=== PATIENT | female | born 1985 | race Caucasian/White ===

== ENCOUNTER 2017-06-29 08:22 | Emergency (ER) | payer SELFPAY ==
[2017-06-29] MEDS ORDERED: ONDANSETRON 4 MG/2 ML VIAL IVP ONE (08:51)
[2017-06-29] MEDS ORDERED: NS 1,000 ML IV ONE (08:51)
[2017-06-29] MEDS ORDERED: fentaNYL 100 MCG/2 ML INJ IVP ONE (08:51)
--- NOTE | 2017-06-29 08:54 | EDPHY ---
H & P Time Seen by Provider: 06/29/17 08:42 HPI/ROS: CHIEF COMPLAINT: Sudden onset lower abdominal pain HISTORY OF PRESENT ILLNESS: Patient is a [id number] and has not started menstruating since she gave . She doing well was breast feeding at 4:30 a.m. This morning and felt fine. She was awakened at 6:30 a.m. With severe lower abdominal sharp pain which starts in middle and radiates to the left. It is better now and improved when it started but still is moderate to severe. Not associated with urinary symptoms or vomiting or diarrhea or recent injury or trauma. No vaginal bleeding or discharge. REVIEW OF SYSTEMS: Eye: no change in vision ENT: no sore throat Cardiac: no chest pain or syncope Pulmonary: no cough or SOB Abdomen: HPI Musculoskeletal: no back pain Skin: no rash Neuro: no headache Constitutional: no fever : no urinary symptoms A comprehensive 10 point review of systems is otherwise negative aside from elements mentioned in the history of present illness. PAST MEDICAL HISTORY: 2 para 0 Social history: Here with and brother General Appearance: Alert and conversant, cooperative. Eyes: No scleral icterus. ENT, Mouth: Normal mucous membranes. Respiratory: Normal respiratory effort, breath sounds equal, lungs are clear to auscultation. Cardiovascular: Regular rate and rhythm. Gastrointestinal: Left lower quadrant abdominal tenderness and suprapubic tenderness but no rebound or guarding. Neurological: Alert, face symmetric, normal motor and sensory in extremities. Skin: Warm and dry, no rashes. Musculoskeletal: No peripheral edema. Psychiatric: Not agitated. Emergency Department course/MDM: Fentanyl 50 mcg IV and Zofran 4 mg IV. Ultrasound of pelvis. CBC and test, urinalysis. Clinical impression would be more likely to be ovarian then appendix. 1105: Negative ultrasound, can't see appendix. Ion. 1129: Re-evaluated, labs and ultrasound discussed. Toradol 15 mg IV, discharge if UA is negative. 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 However I do not think she has PID or ectopic her ovarian torsion or any other acute surgical emergent process. Urine dip negative for blood or infection, reasonable to discharge with precautions. I think appendicitis would be unlikely but is not completely excluded at this time, patient warned. Smoking Status: Never smoked Constitutional: Initial Vital Signs Temperature (C) 36.6 C 06/29/17 08:37 Heart Rate 73 06/29/17 08:37 Respiratory Rate 17 06/29/17 08:37 Blood Pressure 114/69 06/29/17 08:37 O2 Sat (%) 94 06/29/17 08:37 O2 Delivery Mode Room Air Allergies/Adverse Reactions: No Known Allergies Allergy (Unverified 06/29/17 08:37) Home Medications: Medication Instructions Recorded NK [No Known Home Meds] 06/29/17 Medical Decision Making - Diagnostics Imaging Results: Imaging Impressions Abdomen Ultrasound 06/29/17 08:52 Impression: 1. Nonvisualization of the appendix. Results called to Dr. Fenton at 11:00 AM Pelvic/Renal Ultrasound 06/29/17 08:52 Impression: Normal ultrasound pelvis. Results called to Dr. Sumanth Fenton at 11:00 AM Differential Diagnosis: Differential considered including but not limited to appendicitis, ectopic, ovarian torsion, PID, ovarian cyst, UTI - Data Points Laboratory Results: Laboratory Results 06/29/17 09:15 06/29/17 09:15 06/29/17 06/29/17 06/29/17 09:15 09:15 09:15 WBC 5.08 10^3/uL 10^3/uL (3.80-9.50) RBC 4.45 10^6/uL 10^6/uL (4.18-5.33) Hgb 13.3 g/dL g/dL (12.6-16.3) Hct 39.9 % % (38.0-47.0) MCV 89.7 fL fL (81.5-99.8) MCH 29.9 pg pg (27.9-34.1) MCHC 33.3 g/dL g/dL (32.4-36.7) RDW 12.3 % % (11.5-15.2) Plt Count 229 10^3/uL 10^3/uL (150-400) MPV 9.7 fL fL (8.7-11.7) Neut % (Auto) 58.0 % % (39.3-74.2) Lymph % (Auto) 34.3 % % (15.0-45.0) [place] % (Auto) 4.7 % % (4.5-13.0) Eos % (Auto) 1.8 % % (0.6-7.6) Baso % (Auto) 1.0 % % (0.3-1.7) Nucleat RBC Rel Count 0.0 % % (0.0-0.2) Absolute Neuts (auto) 2.95 10^3/uL 10^3/uL (1.70-6.50) Absolute Lymphs (auto) 1.74 10^3/uL 10^3/uL (1.00-3.00) Absolute Monos (auto) 0.24 10^3/uL L 10^3/uL (0.30-0.80) Absolute Eos (auto) 0.09 10^3/uL 10^3/uL (0.03-0.40) Absolute Basos (auto) 0.05 10^3/uL 10^3/uL (0.02-0.10) Absolute Nucleated RBC 0.00 10^3/uL 10^3/uL (0-0.01) Immature Gran % 0.2 % % (0.0-1.1) Immature Gran # 0.01 10^3/uL 10^3/uL (0.00-0.10) Sodium 143 mEq/L mEq/L (135-145) Potassium 4.2 mEq/L mEq/L (3.5-5.2) Chloride 107 mEq/L mEq/L (97-110) Carbon Dioxide 27 mEq/l mEq/l (22-31) Anion Gap 9 mEq/L mEq/L (8-16) BUN 16 mg/dL mg/dL (7-23) Creatinine 0.7 mg/dL mg/dL (0.6-1.0) Estimated GFR > 60 Glucose 83 mg/dL mg/dL (70-100) Calcium 9.3 mg/dL mg/dL (8.5-10.4) Beta HCG, Qual NEGATIVE Medications Given: Discontinued Medications Fentanyl (Sublimaze) 50 mcg IVP EDNOW ONE Stop: 06/29/17 08:52 Last Admin: 06/29/17 11:39 Dose: Not Given Sodium Chloride (Ns) 1,000 mls @ 0 mls/hr IV EDNOW ONE; Wide Open PRN Reason: Protocol Stop: 06/29/17 08:52 Last Admin: 06/29/17 09:21 Dose: 1,000 mls Ketorolac Tromethamine (Toradol) 30 mg IVP EDNOW ONE Stop: 06/29/17 11:31 Last Admin: 06/29/17 11:33 Dose: 30 mg Ondansetron HCl (Zofran) 4 mg IVP EDNOW ONE Stop: 06/29/17 08:52 Last Admin: 06/29/17 11:39 Dose: Not Given Departure - Departure Disposition: Home, Routine, Self-Care Clinical Impression: pelvic pain Condition: Good Instructions: Pelvic Pain in Women (ED) Additional Instructions: You need to return to the emergency department immediately if you develop worsening or severe pain, fever, vomiting or you are not completely better in 8- 12 hours. Referrals: Henrietta Potts MD [Medical Doctor] - As per Instructions
[2017-06-29 10:09] LABS: PLATELET COUNT 229 10^3/uL (150-400)
[2017-06-29 10:46] VITALS: TEMP 98.1; O2SAT 96
[2017-06-29 11:25] VITALS: BP 97/48; PULSE 68; RESP 16
[2017-06-29] MEDS ORDERED: KETOROLAC 30 MG/1 ML SDV IVP ONE (11:30)
[2017-06-29] MEDS ORDERED: KETOROLAC 30 MG/1 ML SDV ONE (11:31)
== END 2017-06-29 12:05 | disposition home or self-care (01) ==
DX: R10.2 Pelvic and perineal pain (principal); E86.9 Volume depletion, unspecified
CPT/HCPCS: 96374; J1885; J2405; J3010